=== PATIENT | female | born 1955 | race Caucasian/White ===

== ENCOUNTER → 2018-04-26 | Outpatient (CLI) | payer BC ==
[~2018-04-26] MED LIST: AMARYL4 MG PO; GLUCOPHAGE500 MG PO; LANTUS100 UNITS/ SQ; LEVOTHROID137 MCG PO; LIDOCAINE/PRILOCAINE 2.5-2.5% KIT ONE
== END ==
LOC: WCC 11:52
PROVIDERS: ATTEND Family Medicine Adult Medicine
DX: E11.40 Type 2 diabetes mellitus with diabetic neuropathy, unspecified (principal); E11.621 Type 2 diabetes mellitus with foot ulcer; E11.65 Type 2 diabetes mellitus with hyperglycemia; L89.620 Pressure ulcer of left heel, unstageable; L89.510 Pressure ulcer of right ankle, unstageable; R06.00 Dyspnea, unspecified; N18.4 Chronic kidney disease, stage 4 (severe); E03.9 Hypothyroidism, unspecified; D50.9 Iron deficiency anemia, unspecified; Z74.01 Bed confinement status

== ENCOUNTER → 2018-04-27 | Outpatient (CLI) | payer BC ==
[~2018-04-27] MED LIST changes: -LIDOCAINE/PRILOCAINE 2.5-2.5% KIT ONE
--- NOTE | 2018-04-27 16:04 | Diagnostic Imaging Report ---
LEFT HEEL X-RAY - 2 VIEWS HISTORY: \[id number] \S\1525 \S\PRESSURE ULCER LT HEEL,UNSTAGEABLE COMPARISON: None available. FINDINGS: Bones: No acute displaced fracture. Osseous alignment is within normal limits. Joints: The joint spaces are well-maintained. Calcaneal enthesopathic. Soft tissues: The soft tissues appear unremarkable. IMPRESSION: No acute radiographic abnormality. Signed by: Dr. Paola Rubalcava M.D. on 04/27/2018 4:00 PM
--- NOTE | 2018-04-27 16:06 | Diagnostic Imaging Report ---
RIGHT ANKLE X-RAY - 3 VIEWS HISTORY: \[id number] \S\1525 \S\PRESSURE ULCER LT HEEL,UNSTAGEABLE COMPARISON: None available. FINDINGS: Bones: No acute displaced fracture. Osseous alignment is within normal limits. Joints: The joint spaces are well-maintained. Soft tissues: The soft tissues appear unremarkable. IMPRESSION: No acute radiographic abnormality. Signed by: Dr. Paola Rubalcava M.D. on 04/27/2018 4:03 PM
== END ==
LOC: RAD 14:57
PROVIDERS: ATTEND Family Medicine Adult Medicine
DX: L89.620 Pressure ulcer of left heel, unstageable (principal)

== ENCOUNTER → 2018-05-03 | Outpatient (CLI) | payer BC | LOC: WCC 14:19 | PROVIDERS: ATTEND Family Medicine Adult Medicine | DX: E11.65 Type 2 diabetes mellitus with hyperglycemia (principal); E11.40 Type 2 diabetes mellitus with diabetic neuropathy, unspecified; E11.621 Type 2 diabetes mellitus with foot ulcer; L89.620 Pressure ulcer of left heel, unstageable; L89.510 Pressure ulcer of right ankle, unstageable; N18.4 Chronic kidney disease, stage 4 (severe); B96.89 Other specified bacterial agents as the cause of diseases classified elsewhere; D50.9 Iron deficiency anemia, unspecified; E03.9 Hypothyroidism, unspecified; R06.00 Dyspnea, unspecified; Z74.01 Bed confinement status | CPT/HCPCS: 87071; 87075; 87205 ==

== ENCOUNTER → 2018-06-21 | Outpatient (CLI) | payer BC ==
[~2018-06-21] MED LIST changes: +LIDOCAINE/PRILOCAINE 2.5-2.5% KIT ONE
== END ==
LOC: WCC 11:04
PROVIDERS: ATTEND Family Medicine Adult Medicine
DX: E11.621 Type 2 diabetes mellitus with foot ulcer (principal); E11.65 Type 2 diabetes mellitus with hyperglycemia; E11.40 Type 2 diabetes mellitus with diabetic neuropathy, unspecified; L89.622 Pressure ulcer of left heel, stage 2; L89.510 Pressure ulcer of right ankle, unstageable; N18.4 Chronic kidney disease, stage 4 (severe); R06.00 Dyspnea, unspecified; E03.9 Hypothyroidism, unspecified; A49.01 Methicillin susceptible Staphylococcus aureus infection, unspecified site; B95.1 Streptococcus, group B, as the cause of diseases classified elsewhere; D50.9 Iron deficiency anemia, unspecified; Z74.01 Bed confinement status

== ENCOUNTER → 2018-06-28 | Outpatient (CLI) | payer BC ==
[~2018-06-28] MED LIST changes: -LIDOCAINE/PRILOCAINE 2.5-2.5% KIT ONE
== END ==
LOC: WCC 09:23
PROVIDERS: ATTEND Family Medicine Adult Medicine
DX: E11.621 Type 2 diabetes mellitus with foot ulcer (principal); E11.65 Type 2 diabetes mellitus with hyperglycemia; E11.40 Type 2 diabetes mellitus with diabetic neuropathy, unspecified; L89.622 Pressure ulcer of left heel, stage 2; R06.00 Dyspnea, unspecified; N18.4 Chronic kidney disease, stage 4 (severe); D50.9 Iron deficiency anemia, unspecified; E03.9 Hypothyroidism, unspecified; Z74.01 Bed confinement status

== ENCOUNTER → 2018-07-03 | Outpatient (CLI) | payer BC | LOC: WCC 10:31 | PROVIDERS: ATTEND Family Medicine Adult Medicine | DX: E11.40 Type 2 diabetes mellitus with diabetic neuropathy, unspecified (principal); E11.621 Type 2 diabetes mellitus with foot ulcer; E11.65 Type 2 diabetes mellitus with hyperglycemia; L89.622 Pressure ulcer of left heel, stage 2; R06.00 Dyspnea, unspecified; N18.4 Chronic kidney disease, stage 4 (severe); D50.9 Iron deficiency anemia, unspecified; E03.9 Hypothyroidism, unspecified; Z74.01 Bed confinement status ==

== ENCOUNTER → 2018-07-12 | Outpatient (CLI) | payer BC | LOC: WCC 13:05 | PROVIDERS: ATTEND Family Medicine Adult Medicine | DX: E11.40 Type 2 diabetes mellitus with diabetic neuropathy, unspecified (principal); E11.621 Type 2 diabetes mellitus with foot ulcer; E11.65 Type 2 diabetes mellitus with hyperglycemia; L89.622 Pressure ulcer of left heel, stage 2; R06.00 Dyspnea, unspecified; D50.9 Iron deficiency anemia, unspecified; E03.9 Hypothyroidism, unspecified; N18.4 Chronic kidney disease, stage 4 (severe); Z74.01 Bed confinement status ==

== ENCOUNTER → 2018-07-19 | Outpatient (CLI) | payer BC ==
[~2018-07-19] MED LIST changes: +LIDOCAINE/PRILOCAINE 2.5-2.5% KIT ONE; +MINERAL OIL/PETROLAT/GLYCERI 6OZ BTL ONE
== END ==
LOC: WCC 11:01
PROVIDERS: ATTEND Family Medicine Adult Medicine
DX: E11.40 Type 2 diabetes mellitus with diabetic neuropathy, unspecified (principal); E11.65 Type 2 diabetes mellitus with hyperglycemia; E11.621 Type 2 diabetes mellitus with foot ulcer; L89.622 Pressure ulcer of left heel, stage 2; R06.00 Dyspnea, unspecified; N18.4 Chronic kidney disease, stage 4 (severe); D50.9 Iron deficiency anemia, unspecified; E03.9 Hypothyroidism, unspecified; Z74.01 Bed confinement status

== ENCOUNTER → 2018-07-26 | Outpatient (CLI) | payer BC ==
[~2018-07-26] MED LIST changes: +DIATRIZOATE MEGL/DIATRIZOA SOD 30 ML BTL PO ONE; +IOPAMIDOL 370 MG/ML 200 ML INFUS..BTL INJ ONE; -LIDOCAINE/PRILOCAINE 2.5-2.5% KIT ONE; -MINERAL OIL/PETROLAT/GLYCERI 6OZ BTL ONE; +SODIUM CHLORIDE 0.9% 50ML 50 ML ONE
== END ==
LOC: WCC 11:19
PROVIDERS: ATTEND Family Medicine Adult Medicine
DX: E11.40 Type 2 diabetes mellitus with diabetic neuropathy, unspecified (principal); E11.621 Type 2 diabetes mellitus with foot ulcer; E11.65 Type 2 diabetes mellitus with hyperglycemia; L89.622 Pressure ulcer of left heel, stage 2; R06.00 Dyspnea, unspecified; N18.4 Chronic kidney disease, stage 4 (severe); I10 Essential (primary) hypertension; I48.91 Unspecified atrial fibrillation; E78.5 Hyperlipidemia, unspecified; D50.9 Iron deficiency anemia, unspecified; I21.9 Acute myocardial infarction, unspecified; E03.9 Hypothyroidism, unspecified; Z74.01 Bed confinement status

== ENCOUNTER → 2018-08-10 | Outpatient (CLI) | payer BC ==
[~2018-08-10] MED LIST changes: -DIATRIZOATE MEGL/DIATRIZOA SOD 30 ML BTL PO ONE; +SODIUM CHLORIDE 0.9% 500ML 500 ML ONE
[2018-08-10 11:06] LABS: CREATININE, SERUM 1.14 mg/dL (0.57-1.11)
--- NOTE | 2018-08-10 13:31 | Diagnostic Imaging Report ---
EXAM: CT Abdomen and Pelvis WITH contrast INDICATION: Query incisional hernia. COMPARISON: None. TECHNIQUE: Abdomen and pelvis were scanned utilizing a multidetector helical scanner from the lung base to the pubic symphysis after administration of IV contrast. Coronal and sagittal reformations were obtained. Routine protocol was performed. Scan was performed when during portal venous phase. IV CONTRAST: 100 mL of Isovue 370 ORAL CONTRAST: Water COMPLICATIONS: None RADIATION DOSE: Total DLP: 290.7 mGy*cm CTDIvol has been reviewed. It is below the limits set by the Radiation Protocol Committee (RPC). FINDINGS: LINES and TUBES: None. LOWER THORAX: Unremarkable HEPATOBILIARY: No evidence of focal lesion. No biliary ductal dilation. GALLBLADDER: No radio-opaque stones or sludge. No wall thickening. SPLEEN: No splenomegaly. PANCREAS: No focal masses or ductal dilatation. ADRENALS: No adrenal nodules KIDNEYS/URETERS: Kidneys enhance symmetrically. No evidence of hydronephrosis, solid mass, or stone. Simple appearing right renal cysts. Subcentimeter left upper pole renal hypodensity is too small to characterize, but likely represents a cyst. GI TRACT: No evidence of wall thickening or distension. Appendix is normal. PELVIC ORGANS/BLADDER: Unremarkable. LYMPH NODES: No lymphadenopathy. VESSELS: There are scattered atherosclerotic calcifications in the aorta and branch vessels. PERITONEUM / RETROPERITONEUM: No free air or fluid. BONES AND SOFT TISSUES: Age indeterminate moderate to severe wedge compression deformity of the L1 vertebral body and moderate compression deformity of the L3 vertebral body. No evidence of bony retropulsion. Post surgical changes of the midline lower abdomen without evidence of hernia. CONCLUSION: No evidence of hernia as clinically queried. Age indeterminate wedge compression deformities of the L1 and L3 vertebral bodies. Signed by: Dr. Sarabjit Hines MD on 08/10/2018 1:28 PM
== END ==
LOC: CT 10:12
PROVIDERS: ATTEND Family Medicine
DX: K43.2 Incisional hernia without obstruction or gangrene (principal)
CPT/HCPCS: 36415; 74177; 82565; 84520; 96360; J7040; Q9967

== ENCOUNTER 2018-12-03 00:28 | Emergency (ER) | payer BC ==
[~2018-12-03] VITALS: Ht 165.1 cm; Wt 65.3 kg
[~2018-12-03 00:28] MED LIST changes: -IOPAMIDOL 370 MG/ML 200 ML INFUS..BTL INJ ONE; -SODIUM CHLORIDE 0.9% 500ML 500 ML ONE; -SODIUM CHLORIDE 0.9% 50ML 50 ML ONE
--- OUTSIDE RECORDS SUMMARY | 2018-12-03 00:33 | XMS REPORT ---
Author Author [facility] Address Unknown Phone Unavailable Care Team Providers Care Intermission Coordinator Name Role Phone NEVA TADEO Unavailable Unavailable Sigifredo CHAUDHARI Unavailable Unavailable Problems This patient has no known problems. Allergies, Adverse Reactions, Alerts This patient has no known allergies or adverse reactions. Medications This patient has no known medications. Results Test Description Test Time Test Comments Text Results Atomic Results Result Comments CT ABDOMEN/PELVIS W 2018-08-10 13:19:00 [facility] [address] [address] Patient Name: GRAY DAVIS MR #: [id number] : 1955 Age/Sex: 62/F Req #: [id number] Adm Physician: Ordered by: NEVA TADEO DO Report #: [id number] Location: CT Room/Bed: Procedure: [id number] CT/CT ABDOMEN/PELVIS W Exam Date: 08/10/18 Exam Time: 1130 REPORT STATUS: Signed EXAM: CT Abdomen and Pelvis WITH contrast INDICA TION: Query incisional hernia. COMPARISON: None. TECHNIQUE: Abdomen and pelvis were scanned utilizing a multidetector helical scanner from the lung base to the pubic symphysis after administration of IV contrast. Coronal and sagittal reformations were obtained. Routine protocol was performed. Scan was performed when during portal venous phase. IV CONTRAST: 100 mL of Isovue 370 ORAL CONTRAST: Water COMPLICATIONS: None RADIATION DOSE: Total DLP: 290.7 mGy*cm CTDIvol has been reviewed. It is below the limits set by the Radiation Protocol Committee (RPC). FINDINGS: LINES and TUBES: None. LOWER THORAX: Unremarkable HEPATOBILIARY: No evidence of focal lesion. No biliary ductal dilation. GALLBLADDER: No radio-opaque stones or sludge. No wall thickening. SPLEEN: No splenomegaly. PANCREAS: No focal masses or ductal dilatation. ADRENALS: No adrenal nodules KIDNEYS/URETERS: Kidneys enhance s ymmetrically. No evidence of hydronephrosis, solid mass, or stone. Simple appearing right renal cysts. Subcentimeter left upper pole renal hypodensity is too small to characterize, but likely represents a cyst. GI TRACT: No evidence of wall thickening or distension. Appendix is normal. PELVIC ORGANS/BLADDER: Unremarkable. LYMPH NODES: No lymphadenopathy. VESSELS: There are scattered atherosclerotic calcifications in the aorta and branch vessels. PERITONEUM / RETROPERITONEUM: No free air or fluid. BONES AND SOFT TISSUES: Age indeterminate moderate to severe wedge compression deformity of the L1 vertebral body and moderate compression deformity of the L3 vertebral body. No evidence of bony retropulsion. Post surgical changes of the midline lower abdomen without evidence of hernia. CONCLUSION: No evidence of hernia as clinically queried. Age indeterminate wedge compression deformities of the L1 and L3 vertebral bodies. Signed by: Dr. Gracy Kirk MD on 08/10/2018 1:28 PM Dictated By: GRACY KIRK MD 1328 Transcribed By: NATHANAEL on 08/10/18 1328 COPY TO: NEVA TADEO DO ANKLE 3 + VIEWS RIGHT 2018-04-27 16:02:00 [address] [address] Patient Name: ADRIANA DAVIS MR #: [id number] : 1955 Age/Sex: 62/F Req #: [id number] Adm Physician: Ordered by: UZIEL CHAUDHARI MD Report #: [id number] Location: [facility] Room/Bed: Procedure: DX/ANKLE 3 + VIEWS RIGHT Exam Date: 04/27/18 Exam Time: 1525 REPORT STATUS: Signed RIGHT ANKLE X-RAY - 3 VIEWS HISTORY: COMPARISON: None available. FINDINGS: Bones: No acute displaced fracture. Osseous alignment is within normal limits. Joints: The joint spaces are well-maintained. Soft tissues: The soft tissues appear unremarkable. IMPRESSION: No acute radiographic abnormality. Signed by: Dr. Samreen Galicia M.D. on 04/27/2018 4:03 PM Dictated By: SAMREEN GALICIA MD 160 Transcribed By: NATHANAEL on 04/27/18 1603 COPY TO: UZIEL CHAUDHARI MD HEEL LT 2018-04-27 15:59:00 [address] [address] Patient Name: ADRIANA DAVIS MR #: [id number] : 1955 Age/Sex: 62/F Req #: [id number] Adm Physician: Ordered by: UZIEL CHAUDHARI MD Report #: [id number] Location: [facility] Room/Bed: Procedure: DX/HEEL LT Exam Date: 04/27/18 Exam Time: 1525 REPORT STATUS: Signed LEFT HEEL X-RAY - 2 VIEWS HISTORY: COMPARISON: None available. FINDINGS: Bones: No acute displaced fracture. Osseous alignment is within normal limits. Joints: The joint spaces are well-maintained. Calcaneal enthesopathic. Soft tissues: The soft tissues appear unremarkable. IMPRESSION: No acute radiographic abnormality. Signed by: Dr. Samreen Galicia M.D. on 04/27/2018 4:00 PM Dictated By: SAMREEN GALICIA MD 99 Transcribed By: NATHANAEL on 04/27/181599 COPY TO: UZIEL CHAUDHARI MD
[2018-12-03 01:31] LABS: CLARITY,URINE CLEAR (CLEAR); COLOR,URINE YELLOW (YELLOW)
[2018-12-03 01:32] LABS: BILIRUBIN,URINE NEGATIVE (NEGATIVE); KETONES,URINE NEGATIVE (NEGATIVE); LEUKOCYTE ESTERASE ,URINE NEGATIVE (NEGATIVE); NITRITE,URINE NEGATIVE (NEGATIVE); PROTEIN,URINE DIPSTICK NEGATIVE (NEGATIVE); URINE UROBILINOGEN 0.2 mg/dL (0.2 - 1)
[2018-12-03 01:34] LABS: BACTERIA,URINE FEW /HPF; EPITHELIAL CELLS,URINE MANY /LPF; WBC,URINE (MAN) 0-5 /HPF (0-5)
[2018-12-03] MEDS ORDERED: KETOROLAC TROMETHAMINE 60 MG/2 ML VIAL IM ONE (01:45)
[2018-12-03] MEDS ORDERED: DIAZEPAM 5 MG TAB PO PRN (01:45)
== END 2018-12-03 02:14 | disposition home or self-care (01) ==
LOC: ER 00:28
DX: M54.6 Pain in thoracic spine (principal); M54.5 Low back pain; S23.3XXA Sprain of ligaments of thoracic spine, initial encounter; R11.0 Nausea
CPT/HCPCS: 81001; 87086; 96372; 99282; J1885